=== PATIENT | male | born 1965 | race Caucasian/White ===

== ENCOUNTER 2018-09-21 16:56 | Emergency (ER) | payer BC ==
--- NOTE | 2018-09-21 17:25 | UC ---
Throat Pain/Nasal [place] HPI - HPI Summary HPI Summary: Patient has been in [place] for 2 weeks and has been sick with cold symptoms since then however with a worsening reductive cough of green sputum starting Tuesday of this week. He doesn't think he's had a fever. No chronic illness. Also has sinus pressure and purulent nasal coryza. - History of Current Complaint Stated Complaint: COLD LIKE SXS Time Seen by Provider: 09/21/18 17:14 Hx Obtained From: Patient Onset/Duration: Gradual Onset, Lasting Weeks Severity: Moderate Cough: Productive - Rectal cough of green sputum. Associated Signs & Symptoms: Positive: Sinus Discomfort, Nasal Discharge - Lateral sinus pressure. - Allergies/Home Medications Allergies/Adverse Reactions: Allergies Allergy/AdvReac Type Severity Reaction Status Date / Time dextromethorphan Allergy Unknown Rash Verified 09/21/18 17:23 [From Mucinex DM] guaifenesin [From Mucinex DM] Allergy Unknown Rash Verified 09/21/18 17:23 antibiotic, unknown name Allergy Unknown Rash Uncoded 09/21/18 17:23 Home Medications: Home Medications Ascorbic Acid TAB* [Vitamin C TAB*] 1,000 mg PO DAILY 09/21/18 [History Confirmed 09/21/18] Bee Pollen Liquid 15 ml PO DAILY 09/21/18 [History] Calcium Carbonate [Calcium] 12,000 mg PO DAILY 09/21/18 [History Confirmed 09/21] Cholecalciferol TAB* [Vitamin D TAB*] 50 unit PO DAILY 09/21/18 [History Confirmed 09/21/18] Echinacea Purpurea Root [Echinacea] 200 mg PO DAILY 09/21/18 [History Confirmed 09/21/18] Lecithin [Gram-O-Leci] 200 mg PO DAILY 09/21/18 [History Confirmed 09/21/18] Magnesium [Magnesium Elemental] 50 mg PO DAILY 09/21/18 [History Confirmed 09/21] Miataki Mushroom/Vitamin C 3 cap PO DAILY 09/21/18 [History] PMH/Surg Hx/FS Hx/Imm Hx Previously Healthy: Yes Other History Of: Negative For: HIV - Surgical History Surgical History: Yes Surgery Procedure, Year, and Place: 05/2000- 2007- endoscopy on right knee (several fractures) - Family History Known Family History: Positive: None - Social History Occupation: Employed Full-time Lives: With Family Alcohol Use: Daily Substance Use Type: None Smoking Status (MU): Never Smoked Tobacco Review of Systems All Other Systems Reviewed And Are Negative: Yes ENT: Positive: Nasal Discharge, Sinus Congestion, Sinus Pain/Tenderness Respiratory: Positive: Cough - Productive cough of green sputum. Is Patient Immunocompromised?: No Physical Exam Triage Information Reviewed: Yes Appearance: Well-Appearing, No Pain Distress, Well-Nourished, Ill-Appearing - Mildly ill-appearing Vital Signs Reviewed: Yes Eye Exam: Normal ENT: Positive: Nasal congestion, Nasal drainage - Purulent left nasal coryza with inflamed turbinates., TMs normal, Sinus tenderness - Bilateral maxillary sinus tenderness., Uvula midline Neck exam: Normal Neck: Positive: Supple, Nontender, No Lymphadenopathy Respiratory: Positive: No respiratory distress, No accessory muscle use, Wheezing - Tight cough with mild wheeze with forced expiration. Cardiovascular: Positive: RRR, No Murmur, Pulses Normal, Brisk Capillary Refill Abdominal Exam: Normal Abdomen Description: Positive: Nontender, No Organomegaly, Soft Bowel Sounds: Positive: Present Musculoskeletal Exam: Normal Neurological Exam: Normal Psychological Exam: Normal Skin Exam: Normal Throat Pain/Nasal Course/Dx - Course Course Of Treatment: Patient was given a DuoNeb treatment here. Chest x-ray: negative as read by myself and Dr. Liu. To take the Augmentin twice a day with food. I'm also starting him on prednisone taper. He is to follow-up with his primary care provider on Tuesday if no improvement. - Differential Dx/Diagnosis Provider Diagnosis: Sinusitis Discharge - Sign-Out/Discharge Documenting (check all that apply): Patient Departure All imaging exams completed and their final reports reviewed: No - Discharge Plan Condition: Fair Disposition: HOME Prescriptions: Amoxicillin/Clavulanate TAB* [Augmentin TAB 875*] 875 mg PO BID 10 Days #20 tab predniSONE [Prednisone 20 MG TAB] 20 mg PO DAILY 9 Days #18 tablet Patient Education Materials: Sinusitis (ED) Referrals: Severiano Mondragon MD [Primary Care Provider] - Additional Instructions: Increase fluids, take the antibiotic twice a day for 10 days with food. Take the prednisone with food as well. Definite follow-up with your primary care provider on Tuesday if no improvement. - Billing Disposition and Condition Condition: FAIR Disposition: Home
[2018-09-21 17:39] VITALS: BP 136/77
[2018-09-21] MEDS ORDERED: Albuterol/Ipratropium NEB.SOL* Albuterol 2.5 MG/Ipratropium 0.5 MG 3 ML INH ONE (17:45)
--- NOTE | 2018-09-23 16:28 | UC ---
- Progress Note Progress Note: Patient Name: LA GORDILLO Medical Record#: [id number] Ordering Physician: Drea Kenny NP Acct.#: [id number] : 1965 Age: 53 Sex: M Location: [facility] Exam Date: 09/21/181744 ADM Status: DEP ER Order Information: CHEST PA & LAT 2 VWS Accession Number: [id number] CPT: 38041 INDICATION: Tight productive cough. COMPARISON: There are no relevant prior studies available for comparison. TECHNIQUE: Dual-energy PA and lateral views of the chest were obtained. FINDINGS: The heart is within normal limits in size. Mediastinal and hilar contours appear within normal limits. The lungs are clear. No pleural effusion is present. IMPRESSION: NO EVIDENCE FOR ACTIVE CARDIOPULMONARY DISEASE. R0 Preliminary Imaging Read R0 <Electronically signed by Jefferson Cooper MD in OV> 09/22/18720 Dictated By: Jefferson Cooper MD Dictated Date/Time: 09/22/18720 Transcribed Date/Time: 09/22/18717 Copy to: CC:Severiano Mondragon MD; Drea Kenny NP; Sukh Liu MD Imaging - [facility] [address] [address] ph ([phone]) ph ([phone]) ph ([phone]) This report is only to be considered final once signed by the Provider(s) as displayed in the "<Electronically Signed by >" field (s). Absence of a signature indicates the report is in a draft status and still needs to be finalized. In the event this document was created by someone other than the signing Provider, the individual initiating the document will be listed in the "Entered by:" or "Dictated by:" berry. 1 of 1 Course/Dx - Diagnoses Provider Diagnoses: Sinusitis Discharge - Sign-Out/Discharge Documenting (check all that apply): Patient Departure All imaging exams completed and their final reports reviewed: Yes - Discharge Plan Condition: Fair Disposition: HOME Prescriptions: Amoxicillin/Clavulanate TAB* [Augmentin TAB 875*] 875 mg PO BID 10 Days #20 tab predniSONE [Prednisone 20 MG TAB] 20 mg PO DAILY 9 Days #18 tablet Patient Education Materials: Sinusitis (ED) Referrals: Severiano Mondragon MD [Primary Care Provider] - Additional Instructions: Increase fluids, take the antibiotic twice a day for 10 days with food. Take the prednisone with food as well. Definite follow-up with your primary care provider on Tuesday if no improvement. - Billing Disposition and Condition Condition: FAIR Disposition: Home
== END 2018-09-21 18:47 | disposition home or self-care (01) ==
LOC: UCCORT 16:56
DX: J32.9 Chronic sinusitis, unspecified (principal); Z88.1 Allergy status to other antibiotic agents; Z88.8 Allergy status to other drugs, medicaments and biological substances
CPT/HCPCS: 71046; 99202; A9270-GY; G0463